=== PATIENT | male | born 1985 | race Caucasian/White ===

== ENCOUNTER 2017-01-17 17:39 | Emergency (ER) | payer OTHER ==
[~2017-01-17] VITALS: Ht 175.2 cm; Wt 93.0 kg
[~2017-01-17 17:39] MED LIST: ANAPROX DS550 MG PO; BACTRIM DS 8001 TA1 PO; CIPRO500 MG PO; ELIMITE 5%60 GM PO; KENALOG0.1% TP; NKHM; PENICILLIN VK500 MG PO; PREDNISONE20 M1 PO; PREDNISONE20 MG PO; TESSALON PERLE100 M1 PO; ZITHROMAX250 MG PO
[2017-01-17] MEDS ORDERED: CLINDAMYCIN150 MG PO (18:29)
== END 2017-01-17 18:42 | disposition home or self-care (01) ==
LOC: ED 17:39
DX: L02.511 Cutaneous abscess of right hand (principal); L02.414 Cutaneous abscess of left upper limb; F17.200 Nicotine dependence, unspecified, uncomplicated; Z88.1 Allergy status to other antibiotic agents

== ENCOUNTER 2017-02-24 20:07 | Emergency (ER) | payer OTHER ==
[~2017-02-24] VITALS: Ht 172.7 cm; Wt 97.5 kg
[~2017-02-24 20:07] MED LIST changes: +CLINDAMYCIN150 MG PO
[2017-02-24] MEDS ORDERED: PREDNISONE20 M1 PO (21:42)
[2017-02-24] MEDS ORDERED: ZITHROMAX250 MG PO (21:42)
== END 2017-02-24 21:48 | disposition home or self-care (01) ==
LOC: ED 20:07
DX: J20.9 Acute bronchitis, unspecified (principal); F17.200 Nicotine dependence, unspecified, uncomplicated; Z88.1 Allergy status to other antibiotic agents

== ENCOUNTER 2017-04-12 23:00 | Emergency (ER) | payer OTHER ==
[~2017-04-12] VITALS: Ht 172.7 cm; Wt 93.0 kg
[2017-04-12] MEDS ORDERED: BACTRIM DS 8001 TA1 PO (23:26)
[2017-04-12] MEDS ORDERED: VIBRAMYCIN100 MG PO (23:26)
== END 2017-04-12 23:52 | disposition home or self-care (01) ==
LOC: ED 23:00
DX: S70.362A Insect bite (nonvenomous), left thigh, initial encounter (principal); F17.200 Nicotine dependence, unspecified, uncomplicated; Z88.1 Allergy status to other antibiotic agents; W57.XXXA Bitten or stung by nonvenomous insect and other nonvenomous arthropods, initial encounter; Y93.89 Activity, other specified; Y92.9 Unspecified place or not applicable; Y99.9 Unspecified external cause status

== ENCOUNTER 2017-10-11 16:51 | Emergency (ER) | payer OTHER ==
[~2017-10-11] VITALS: Wt 95.3 kg
[~2017-10-11 16:51] MED LIST changes: +VIBRAMYCIN100 MG PO
[2017-10-11] MEDS ORDERED: DELTASONE20 M1 PO (17:34)
[2017-10-11] MEDS ORDERED: ZITHROMAX250 MG PO (17:34)
== END 2017-10-11 17:28 | disposition home or self-care (01) ==
LOC: ED 16:51
DX: J06.9 Acute upper respiratory infection, unspecified (principal); F17.200 Nicotine dependence, unspecified, uncomplicated; F10.10 Alcohol abuse, uncomplicated; Z88.1 Allergy status to other antibiotic agents

== ENCOUNTER 2018-02-19 08:12 | Emergency (ER) | payer SELFPAY ==
[~2018-02-19] VITALS: Ht 175.2 cm; Wt 89.4 kg
[~2018-02-19 08:12] MED LIST changes: +DELTASONE20 M1 PO
[2018-02-19] MEDS ORDERED: CEPHALEXIN500 M1 PO (08:23)
== END 2018-02-19 08:26 | disposition home or self-care (01) ==
LOC: ED 08:12
DX: S50.361A Insect bite (nonvenomous) of right elbow, initial encounter (principal); F17.200 Nicotine dependence, unspecified, uncomplicated; L08.9 Local infection of the skin and subcutaneous tissue, unspecified; Z79.899 Other long term (current) drug therapy; Z88.1 Allergy status to other antibiotic agents; W57.XXXA Bitten or stung by nonvenomous insect and other nonvenomous arthropods, initial encounter; Y93.89 Activity, other specified; Y92.89 Other specified places as the place of occurrence of the external cause; Y99.9 Unspecified external cause status

== ENCOUNTER 2018-03-09 02:09 | Emergency (ER) | payer SELFPAY ==
[~2018-03-09] VITALS: Ht 175.2 cm; Wt 93.0 kg
[~2018-03-09 02:09] MED LIST changes: +CEPHALEXIN500 M1 PO
[2018-03-09 02:40] LABS: BASO % 0.5 % (0.0-1.0); EOS % 0.6 % (1.0-4.0); HEMATOCRIT 40.1 % (42.0-52.0); HEMOGLOBIN 13.3 g/dl (14.0-18.0); LYMPH # 1.8 10*3/uL (1.3-4.4); LYMPH % 27.9 % (27.0-41.0); MEAN CELL VOLUME 86.1 fl (80.0-94.0); MEAN CORPUSCULAR HGB 28.5 pg (27.0-31.0); MEAN CORPUSCULAR HGB CONC 33.2 g/dl (33.0-37.0); MEAN PLATELET VOLUME 10.8 fl (9.6-12.3); MONO # 0.3 10*3/uL (0.1-1.0); MONO % 5.4 % (3.0-9.0); NEUT # 4.1 10*3/uL (2.3-7.9); NEUT % 65.4 % (47.0-73.0); PLATELET COUNT AUTOMATED 165 10*3/uL (130-400); RED BLOOD COUNT 4.66 10*6/uL (4.50-5.90); RED CELL DISTRI WIDTH 12.6 % (0-14.5); WHITE BLOOD COUNT 6.3 10*3/uL (4.8-10.8)
[2018-03-09 02:50] LABS: ACT PARTIAL THROMBO TIME 23.5 SECONDS (20.8-31.5)
[2018-03-09 02:56] LABS: ALBUMIN 3.8 gm/dl (3.1-4.5); ALKALINE PHOSPHATASE 86 U/L (45-117); BUN 16 mg/dl (7-24); CHLORIDE 104 mmol/L (98-107); CREATININE 0.93 mg/dL (0.70-1.30); POTASSIUM 4.1 mmol/L (3.5-5.1); SGOT/AST 30 IU/L (3-35); SGPT/ALT 39 U/L (12-78); SODIUM 142 mmol/L (136-145)
[2018-03-09 02:58] LABS: CKMB 2.5 ng/ml (0.5-3.6)
[2018-03-09 03:02] LABS: TROPONIN I < 0.015 ng/ml (<0.045)
== END 2018-03-09 03:30 | disposition home or self-care (01) ==
LOC: ED 02:09
PROVIDERS: Emergency Medicine
DX: R07.89 Other chest pain (principal); Z88.1 Allergy status to other antibiotic agents

== ENCOUNTER → 2018-04-26 | Outpatient (CLI) | payer OTHER ==
[2018-04-26 15:40] LABS: HEMATOCRIT 35.8 % (42.0-52.0); HEMOGLOBIN 11.3 g/dl (14.0-18.0); MEAN CELL VOLUME 88.4 fl (80.0-94.0); MEAN CORPUSCULAR HGB 27.9 pg (27.0-31.0); MEAN CORPUSCULAR HGB CONC 31.6 g/dl (33.0-37.0); MEAN PLATELET VOLUME 9.1 fl (9.6-12.3); PLATELET COUNT AUTOMATED 168 10*3/uL (130-400); RED BLOOD COUNT 4.05 10*6/uL (4.50-5.90); RED CELL DISTRI WIDTH 16.5 % (0-14.5)
[2018-04-26 15:53] LABS: ALBUMIN 2.9 gm/dl (3.1-4.5); ALKALINE PHOSPHATASE 71 U/L (45-117); BUN 13 mg/dl (7-24); CHLORIDE 107 mmol/L (98-107); CREATININE 0.87 mg/dL (0.70-1.30); POTASSIUM 4.1 mmol/L (3.5-5.1); SGOT/AST 19 IU/L (3-35); SGPT/ALT 20 U/L (12-78); SODIUM 140 mmol/L (136-145); TOTAL PROTEIN 8.8 gm/dL (6.4-8.2)
[2018-04-26 16:02] LABS: ATYPICAL LYMPHS 6 % (0-0); BASOPHILS 2 % (0-1); PLATELET SUFFICIENCY NORMAL (NORMAL); TOTAL CELLS COUNTED 100 #CELLS
== END | disposition home or self-care (01) ==
LOC: LAB 15:16
PROVIDERS: Registered Nurse
DX: J90 Pleural effusion, not elsewhere classified (principal); J18.1 Lobar pneumonia, unspecified organism; J86.9 Pyothorax without fistula

== ENCOUNTER 2018-10-05 13:48 | Emergency (ER) | payer OTHER ==
[~2018-10-05] VITALS: Ht 175.2 cm; Wt 93.0 kg
[2018-10-05 14:12] LABS: BILIRUBIN NEGATIVE (NEGATIVE); BLOOD NEGATIVE (NEGATIVE); CLARITY CLEAR (CLEAR); COLOR YELLOW (YELLOW); GLUCOSE NEGATIVE (NEGATIVE); KETONE NEGATIVE (NEGATIVE); LEUKO ESTERASE NEGATIVE (NEGATIVE); NITRITE NEGATIVE (NEGATIVE); SPECIFIC GRAVITY 1.025 (1.005-1.030); UROBILINOGEN 0.2 E.U./dl (0.2-1.0)
[2018-10-05 14:15] LABS: BASO % 0.3 % (0.0-1.0); EOS % 0.2 % (1.0-4.0); HEMATOCRIT 40.2 % (42.0-52.0); HEMOGLOBIN 13.4 g/dl (14.0-18.0); LYMPH # 1.7 10*3/uL (1.3-4.4); LYMPH % 19.7 % (27.0-41.0); MEAN CELL VOLUME 87.8 fl (80.0-94.0); MEAN CORPUSCULAR HGB 29.3 pg (27.0-31.0); MEAN CORPUSCULAR HGB CONC 33.3 g/dl (33.0-37.0); MEAN PLATELET VOLUME 10.3 fl (9.6-12.3); MONO # 0.6 10*3/uL (0.1-1.0); MONO % 6.3 % (3.0-9.0); NEUT # 6.4 10*3/uL (2.3-7.9); NEUT % 73.3 % (47.0-73.0); PLATELET COUNT AUTOMATED 179 10*3/uL (130-400); RED BLOOD COUNT 4.58 10*6/uL (4.50-5.90); RED CELL DISTRI WIDTH 13.4 % (0-14.5); WHITE BLOOD COUNT 8.8 10*3/uL (4.8-10.8)
[2018-10-05 14:28] LABS: WBC 0-2 wbc/hpf (0-5)
[2018-10-05 14:29] LABS: MUCOUS 1+
[2018-10-05 14:31] LABS: ALBUMIN 3.6 gm/dl (3.1-4.5); ALKALINE PHOSPHATASE 80 U/L (45-117); BUN 12 mg/dl (7-24); CHLORIDE 108 mmol/L (98-107); CREATININE 0.98 mg/dL (0.70-1.30); LIPASE 149 U/L (73-393); POTASSIUM 3.7 mmol/L (3.5-5.1); SGOT/AST 23 IU/L (3-35); SGPT/ALT 28 U/L (12-78); SODIUM 140 mmol/L (136-145); TOTAL PROTEIN 8.1 gm/dL (6.4-8.2)
[2018-10-05 14:46] LABS: ACT PARTIAL THROMBO TIME 22.5 SECONDS (20.8-31.5)
== END 2018-10-05 15:16 | disposition home or self-care (01) ==
LOC: ED 13:48
PROVIDERS: Emergency Medicine
DX: R10.32 Left lower quadrant pain (principal); K62.5 Hemorrhage of anus and rectum; E66.9 Obesity, unspecified; F17.200 Nicotine dependence, unspecified, uncomplicated; Z88.1 Allergy status to other antibiotic agents

== ENCOUNTER 2019-05-28 01:32 | Emergency (ER) | payer SELFPAY ==
[~2019-05-28] VITALS: Ht 175.2 cm; Wt 99.8 kg
[~2019-05-28 01:32] MED LIST changes: +Tobrex Ophth S2.5 ML OPH
[2019-05-28] MEDS ORDERED: CLINDAMYCIN HC300 MG PO (01:53)
== END 2019-05-28 01:58 | disposition home or self-care (01) ==
LOC: ED 01:32
DX: L03.114 Cellulitis of left upper limb (principal); L03.113 Cellulitis of right upper limb; R53.83 Other fatigue; R68.83 Chills (without fever); R53.1 Weakness; F17.200 Nicotine dependence, unspecified, uncomplicated; Z88.1 Allergy status to other antibiotic agents

== ENCOUNTER 2019-07-15 17:00 | Emergency (ER) | payer SELFPAY ==
[~2019-07-15] VITALS: Ht 175.2 cm; Wt 99.8 kg
[~2019-07-15 17:00] MED LIST changes: +CLINDAMYCIN HC300 MG PO
[2019-07-15 20:04] LABS: BASO # 0.1 10*3/uL (0.0-0.1); BASO % 0.5 % (0.0-1.0); EOS % 0.4 % (1.0-4.0); HEMATOCRIT 40.9 % (42.0-52.0); HEMOGLOBIN 13.8 g/dl (14.0-18.0); LYMPH # 2.3 10*3/uL (1.3-4.4); LYMPH % 19.9 % (27.0-41.0); MEAN CELL VOLUME 89.3 fl (80.0-94.0); MEAN CORPUSCULAR HGB 30.1 pg (27.0-31.0); MEAN CORPUSCULAR HGB CONC 33.7 g/dl (33.0-37.0); MONO # 0.7 10*3/uL (0.1-1.0); MONO % 6.2 % (3.0-9.0); NEUT # 8.3 10*3/uL (2.3-7.9); NEUT % 72.8 % (47.0-73.0); PLATELET COUNT AUTOMATED 191 10*3/uL (130-400); RED BLOOD COUNT 4.58 10*6/uL (4.50-5.90); WHITE BLOOD COUNT 11.3 10*3/uL (4.8-10.8)
[2019-07-15 20:19] LABS: BUN 18 mg/dl (7-24); CHLORIDE 105 mmol/L (98-107); CREATININE 1.01 mg/dL (0.70-1.30); POTASSIUM 3.7 mmol/L (3.5-5.1); SODIUM 135 mmol/L (136-145)
[2019-07-15] MEDS ORDERED: PROAIR HFA8.5 GM INH (21:30)
[2019-07-15] MEDS ORDERED: CLEOCIN HCL300 MG PO (21:33)
== END 2019-07-15 22:00 | disposition home or self-care (01) ==
LOC: ED 17:00
PROVIDERS: Nurse Practitioner
DX: J98.11 Atelectasis (principal); H60.93 Unspecified otitis externa, bilateral; L03.114 Cellulitis of left upper limb; L03.113 Cellulitis of right upper limb; Z98.890 Other specified postprocedural states; Z88.1 Allergy status to other antibiotic agents; Z88.8 Allergy status to other drugs, medicaments and biological substances

== ENCOUNTER 2019-07-23 12:18 | Emergency (ER) | payer MEDICAID ==
[~2019-07-23] VITALS: Ht 175.2 cm; Wt 97.5 kg
[~2019-07-23 12:18] MED LIST changes: +CLEOCIN HCL300 MG PO; +PROAIR HFA8.5 GM INH
[2019-07-23] MEDS ORDERED: MEDROL DOSEPAK4 MG PO (14:39)
== END 2019-07-23 14:53 | disposition home or self-care (01) ==
LOC: ED 12:18
DX: J40 Bronchitis, not specified as acute or chronic (principal); F17.200 Nicotine dependence, unspecified, uncomplicated; Z88.1 Allergy status to other antibiotic agents; Z88.2 Allergy status to sulfonamides

== ENCOUNTER 2019-08-11 21:15 | Emergency (ER) | payer SELFPAY ==
[~2019-08-11] VITALS: Wt 95.3 kg
[~2019-08-11 21:15] MED LIST changes: +MEDROL DOSEPAK4 MG PO
[2019-08-11] MEDS ORDERED: PREDNISONE10 MG PO (22:39)
== END 2019-08-11 22:50 | disposition home or self-care (01) ==
LOC: ED 21:15
DX: R06.2 Wheezing (principal); R05 Cough; F17.200 Nicotine dependence, unspecified, uncomplicated; Z88.1 Allergy status to other antibiotic agents; Z88.2 Allergy status to sulfonamides; Z79.2 Long term (current) use of antibiotics; Z79.899 Other long term (current) drug therapy

== ENCOUNTER 2020-01-13 21:14 | Emergency (ER) | payer MEDICAID ==
[~2020-01-13] VITALS: Ht 172.7 cm; Wt 99.8 kg
[~2020-01-13 21:14] MED LIST changes: +PREDNISONE10 MG PO
[2020-01-13] MEDS ORDERED: TESSALON PERLE100 M1 PO (22:55)
== END 2020-01-13 23:05 | disposition home or self-care (01) ==
LOC: ED 21:14
DX: J40 Bronchitis, not specified as acute or chronic (principal); J06.9 Acute upper respiratory infection, unspecified; Z88.1 Allergy status to other antibiotic agents; Z88.2 Allergy status to sulfonamides; Z88.8 Allergy status to other drugs, medicaments and biological substances

== ENCOUNTER 2020-06-18 13:04 | Emergency (ER) | payer OTHER ==
[~2020-06-18] VITALS: Wt 99.8 kg
[2020-06-18] MEDS ORDERED: DOXYCYCLINE100 M3 PO (14:51)
[2020-06-18 15:12] LABS: BASO # 0.1 10*3/uL (0.0-0.1); BASO % 0.7 % (0.0-1.0); EOS % 0.5 % (1.0-4.0); HEMATOCRIT 41.8 % (42.0-52.0); LYMPH # 1.9 10*3/uL (1.3-4.4); LYMPH % 21.6 % (27.0-41.0); MEAN CELL VOLUME 88.7 fl (80.0-94.0); MEAN CORPUSCULAR HGB 29.1 pg (27.0-31.0); MEAN CORPUSCULAR HGB CONC 32.8 g/dl (33.0-37.0); MEAN PLATELET VOLUME 10.9 fl (9.6-12.3); MONO # 0.5 10*3/uL (0.1-1.0); MONO % 6.1 % (3.0-9.0); NEUT # 6.3 10*3/uL (2.3-7.9); NEUT % 70.9 % (47.0-73.0); PLATELET COUNT AUTOMATED 226 10*3/uL (130-400); RED BLOOD COUNT 4.71 10*6/uL (4.50-5.90); RED CELL DISTRI WIDTH 12.8 % (0-14.5); WHITE BLOOD COUNT 8.9 10*3/uL (4.8-10.8)
[2020-06-18 15:44] LABS: ACT PARTIAL THROMBO TIME 27.5 SECONDS (20.0-32.1); INTERNATIONAL NORM RATIO 1.1 (2.0-3.5)
[2020-06-18 15:51] LABS: ALBUMIN 3.8 gm/dl (3.1-4.5); ALKALINE PHOSPHATASE 82 U/L (45-117); BUN 15 mg/dl (7-24); CHLORIDE 108 mmol/L (98-107); CREATININE 1.13 mg/dL (0.70-1.30); LIPASE 50 U/L (73-393); POTASSIUM 3.6 mmol/L (3.5-5.1); SGOT/AST 28 IU/L (3-35); SGPT/ALT 30 U/L (12-78); SODIUM 140 mmol/L (136-145); TOTAL PROTEIN 8.6 gm/dL (6.4-8.2)
[2020-06-18 15:52] LABS: TROPONIN I < 0.015 ng/ml (<0.045)
[2020-06-18 16:31] LABS: BILIRUBIN 1+; CLARITY CLEAR (CLEAR); COLOR YELLOW (YELLOW); GLUCOSE NEGATIVE; KETONE TRACE
[2020-06-18 16:32] LABS: BLOOD NEGATIVE (NEGATIVE); LEUKO ESTERASE TRACE (NEGATIVE); NITRITE NEGATIVE (NEGATIVE); SPECIFIC GRAVITY >= 1.030 (1.001-1.030)
[2020-06-18 16:36] LABS: RBC 0-2 rbc/hpf (0-2)
[2020-06-18 16:37] LABS: BACTERIA TRACE; EPITHELIAL CELLS 0-2; MUCOUS 1+
== END 2020-06-18 18:29 | disposition home or self-care (01) ==
LOC: ED 13:04
PROVIDERS: Physician Assistant
DX: L02.422 Furuncle of left axilla (principal); R09.1 Pleurisy

== ENCOUNTER 2020-07-19 12:10 | Emergency (ER) | payer OTHER ==
[~2020-07-19] VITALS: Ht 175.2 cm; Wt 99.8 kg
[~2020-07-19 12:10] MED LIST changes: +DOXYCYCLINE100 M3 PO
== END 2020-07-19 12:55 | disposition home or self-care (01) ==
LOC: ED 12:10
DX: R19.09 Other intra-abdominal and pelvic swelling, mass and lump (principal); Z88.8 Allergy status to other drugs, medicaments and biological substances; Z79.899 Other long term (current) drug therapy

== ENCOUNTER 2020-10-05 23:54 | Emergency (ER) | payer OTHER ==
[~2020-10-05] VITALS: Ht 172.7 cm; Wt 99.8 kg
[2020-10-06] MEDS ORDERED: EXCEDRIN MIGRA1 EAC1 PO (00:12)
[2020-10-06 00:36] LABS: BASO # 0.1 10*3/uL (0.0-0.1); BASO % 0.8 % (0.0-1.0); EOS # 0.2 10*3/uL (0.0-0.4); EOS % 1.8 % (1.0-4.0); HEMATOCRIT 42.4 % (42.0-52.0); LYMPH # 2.3 10*3/uL (1.3-4.4); LYMPH % 22.6 % (27.0-41.0); MEAN CELL VOLUME 89.8 fl (80.0-94.0); MEAN CORPUSCULAR HGB 28.4 pg (27.0-31.0); MEAN CORPUSCULAR HGB CONC 31.6 g/dl (33.0-37.0); MEAN PLATELET VOLUME 10.2 fl (9.6-12.3); MONO # 0.8 10*3/uL (0.1-1.0); MONO % 7.5 % (3.0-9.0); NEUT # 6.8 10*3/uL (2.3-7.9); NEUT % 67.1 % (47.0-73.0); PLATELET COUNT AUTOMATED 184 10*3/uL (130-400); RED BLOOD COUNT 4.72 10*6/uL (4.50-5.90); RED CELL DISTRI WIDTH 12.7 % (0-14.5); WHITE BLOOD COUNT 10.1 10*3/uL (4.8-10.8)
[2020-10-06 00:51] LABS: ALBUMIN 3.7 gm/dl (3.1-4.5); ALKALINE PHOSPHATASE 77 U/L (45-117); BUN 12 mg/dl (7-24); CHLORIDE 107 mmol/L (98-107); CREATININE 1.14 mg/dL (0.70-1.30); POTASSIUM 3.5 mmol/L (3.5-5.1); SGOT/AST 37 IU/L (3-35); SGPT/ALT 39 U/L (12-78); SODIUM 139 mmol/L (136-145); TOTAL PROTEIN 8.3 gm/dL (6.4-8.2)
[2020-10-06] MEDS ORDERED: MEDROL DOSEPAK4 MG PO (01:18)
[2020-10-06] MEDS ORDERED: ZITHROMAX250 MG PO (01:18)
== END 2020-10-06 01:45 | disposition home or self-care (01) ==
LOC: ED 23:54
PROVIDERS: Nurse Practitioner Family
DX: J90 Pleural effusion, not elsewhere classified (principal); F17.200 Nicotine dependence, unspecified, uncomplicated; Z86.14 Personal history of Methicillin resistant Staphylococcus aureus infection; Z88.1 Allergy status to other antibiotic agents; Z88.2 Allergy status to sulfonamides; Z79.82 Long term (current) use of aspirin

== ENCOUNTER 2020-12-15 14:29 | Emergency (ER) | payer OTHER ==
[~2020-12-15] VITALS: Ht 172.7 cm; Wt 99.8 kg
[~2020-12-15 14:29] MED LIST changes: +EXCEDRIN MIGRA1 EAC1 PO
[2020-12-15] MEDS ORDERED: HYDROCODON-ACE1 EACH PO (16:42)
== END 2020-12-15 16:44 | disposition home or self-care (01) ==
LOC: ED 14:29
DX: S82.52XA Displaced fracture of medial malleolus of left tibia, initial encounter for closed fracture (principal); F17.200 Nicotine dependence, unspecified, uncomplicated; Z86.14 Personal history of Methicillin resistant Staphylococcus aureus infection; Z88.2 Allergy status to sulfonamides; Z88.8 Allergy status to other drugs, medicaments and biological substances; Z79.2 Long term (current) use of antibiotics; Z79.899 Other long term (current) drug therapy; Z88.1 Allergy status to other antibiotic agents; Z79.82 Long term (current) use of aspirin; Z98.890 Other specified postprocedural states; X50.1XXA Overexertion from prolonged static or awkward postures, initial encounter; Y93.89 Activity, other specified; Y92.812 Truck as the place of occurrence of the external cause; Y99.0 Civilian activity done for income or pay

== ENCOUNTER 2020-12-25 12:36 | Emergency (ER) | payer OTHER ==
[~2020-12-25] VITALS: Ht 175.2 cm; Wt 99.8 kg
[~2020-12-25 12:36] MED LIST changes: +HYDROCODON-ACE1 EACH PO
[2020-12-25] MEDS ORDERED: ZITHROMAX250 MG PO (13:59)
[2020-12-25] MEDS ORDERED: PREDNISONE20 M1 PO (13:59)
== END 2020-12-25 14:11 | disposition home or self-care (01) ==
LOC: ED 12:36
DX: J40 Bronchitis, not specified as acute or chronic (principal); F17.200 Nicotine dependence, unspecified, uncomplicated; Z88.8 Allergy status to other drugs, medicaments and biological substances; Z88.6 Allergy status to analgesic agent; Z79.82 Long term (current) use of aspirin; Z79.899 Other long term (current) drug therapy; Z98.890 Other specified postprocedural states

== ENCOUNTER 2021-01-20 17:35 | Emergency (ER) | payer OTHER ==
[~2021-01-20] VITALS: Wt 110.2 kg
[2021-01-20] MEDS ORDERED: PROVENTIL HFA6.7 GM INH (19:47)
[2021-01-20] MEDS ORDERED: PREDNISONE20 M1 PO (19:47)
== END 2021-01-20 20:15 | disposition home or self-care (01) ==
LOC: ED 17:35
DX: J40 Bronchitis, not specified as acute or chronic (principal); Z20.822 Contact with and (suspected) exposure to COVID-19; Z88.8 Allergy status to other drugs, medicaments and biological substances; Z88.2 Allergy status to sulfonamides; Z79.899 Other long term (current) drug therapy; Z88.6 Allergy status to analgesic agent; Z98.890 Other specified postprocedural states

== ENCOUNTER 2021-03-24 13:04 | Emergency (ER) | payer OTHER ==
[~2021-03-24] VITALS: Ht 175.2 cm; Wt 110.7 kg
[~2021-03-24 13:04] MED LIST changes: +PROVENTIL HFA6.7 GM INH
[2021-03-24] MEDS ORDERED: ZYRTEC10 M2 PO (13:43)
[2021-03-24] MEDS ORDERED: CEFDINIR300 MG PO (13:43)
== END 2021-03-24 13:54 | disposition home or self-care (01) ==
LOC: ED 13:04
DX: H66.92 Otitis media, unspecified, left ear (principal); Z88.8 Allergy status to other drugs, medicaments and biological substances; Z88.2 Allergy status to sulfonamides; Z88.6 Allergy status to analgesic agent; Z79.899 Other long term (current) drug therapy

== ENCOUNTER 2021-04-20 12:00 | Emergency (ER) | payer OTHER ==
[~2021-04-20] VITALS: Ht 175.2 cm; Wt 110.7 kg
[~2021-04-20 12:00] MED LIST changes: +CEFDINIR300 MG PO; +ZYRTEC10 M2 PO
[2021-04-20] MEDS ORDERED: DOXYCYCLINE100 M3 PO ×2 (13:18→13:19)
== END 2021-04-20 13:51 | disposition home or self-care (01) ==
LOC: ED 12:00
DX: L73.9 Follicular disorder, unspecified (principal); F17.200 Nicotine dependence, unspecified, uncomplicated; Z88.1 Allergy status to other antibiotic agents; Z88.6 Allergy status to analgesic agent; Z88.2 Allergy status to sulfonamides; Z79.899 Other long term (current) drug therapy; Z79.2 Long term (current) use of antibiotics; Z79.82 Long term (current) use of aspirin; Z98.890 Other specified postprocedural states

== ENCOUNTER 2021-06-05 11:05 | Emergency (ER) | payer OTHER ==
[2021-06-05] MEDS ORDERED: DOXYCYCLINE100 M3 PO (11:27)
== END 2021-06-05 11:40 | disposition home or self-care (01) ==
LOC: ED 11:05
DX: L02.411 Cutaneous abscess of right axilla (principal); Z98.890 Other specified postprocedural states; Z79.899 Other long term (current) drug therapy; Z79.82 Long term (current) use of aspirin; Z88.1 Allergy status to other antibiotic agents; Z88.5 Allergy status to narcotic agent; Z88.8 Allergy status to other drugs, medicaments and biological substances

== ENCOUNTER 2021-12-10 11:46 | Emergency (ER) | payer OTHER ==
[~2021-12-10] VITALS: Wt 108.9 kg
[2021-12-10 12:35] LABS: BASO # 0.1 10*3/uL (0.0-0.1); BASO % 0.9 % (0.0-1.0); EOS # 0.3 10*3/uL (0.0-0.4); EOS % 3.2 % (1.0-4.0); HEMATOCRIT 42.4 % (42.0-52.0); LYMPH # 1.6 10*3/uL (1.3-4.4); LYMPH % 20.4 % (27.0-41.0); MEAN CELL VOLUME 90.2 fl (80.0-94.0); MEAN CORPUSCULAR HGB 29.8 pg (27.0-31.0); MONO # 0.6 10*3/uL (0.1-1.0); MONO % 7.2 % (3.0-9.0); NEUT # 5.5 10*3/uL (2.3-7.9); NEUT % 68.2 % (47.0-73.0); PLATELET COUNT AUTOMATED 179 10*3/uL (130-400); RED CELL DISTRI WIDTH 12.4 % (0-14.5); WHITE BLOOD COUNT 8.1 10*3/uL (4.8-10.8)
[2021-12-10 12:54] LABS: ALBUMIN 3.5 gm/dl (3.1-4.5); ALKALINE PHOSPHATASE 68 U/L (45-117); BUN 13 mg/dl (7-24); CHLORIDE 107 mmol/L (98-107); CREATININE 0.95 mg/dL (0.70-1.30); LIPASE 59 U/L (73-393); POTASSIUM 4.3 mmol/L (3.5-5.1); SGOT/AST 27 IU/L (3-35); SGPT/ALT 26 U/L (12-78); SODIUM 138 mmol/L (136-145); TOTAL PROTEIN 8.1 gm/dL (6.4-8.2)
== END 2021-12-10 14:07 | disposition home or self-care (01) ==
LOC: ED 11:46
PROVIDERS: Physician Assistant
DX: R42 Dizziness and giddiness (principal); F17.200 Nicotine dependence, unspecified, uncomplicated; Z88.1 Allergy status to other antibiotic agents; Z88.8 Allergy status to other drugs, medicaments and biological substances; Z79.899 Other long term (current) drug therapy; Z98.890 Other specified postprocedural states

== ENCOUNTER 2022-01-28 12:41 | Emergency (ER) | payer OTHER ==
[~2022-01-28] VITALS: Ht 175.2 cm; Wt 108.9 kg
[2022-01-28] MEDS ORDERED: ZITHROMAX250 MG PO ×2 (14:10)
[2022-01-28] MEDS ORDERED: PROAIR HFA8.5 GM INH ×2 (14:10)
[2022-01-28] MEDS ORDERED: PREDNISONE50 MG PO ×2 (14:10)
== END 2022-01-28 14:36 | disposition home or self-care (01) ==
LOC: ED 12:41
DX: J40 Bronchitis, not specified as acute or chronic (principal); J18.9 Pneumonia, unspecified organism; F17.200 Nicotine dependence, unspecified, uncomplicated; Z88.1 Allergy status to other antibiotic agents; Z88.8 Allergy status to other drugs, medicaments and biological substances; Z79.899 Other long term (current) drug therapy; Z98.890 Other specified postprocedural states

== ENCOUNTER 2022-02-03 21:36 | Emergency (ER) | payer OTHER ==
[~2022-02-03] VITALS: Ht 175.2 cm; Wt 111.1 kg
[~2022-02-03 21:36] MED LIST changes: +PREDNISONE50 MG PO
[2022-02-03 22:02] LABS: BASO # 0.1 10*3/uL (0.0-0.1); BASO % 0.4 % (0.0-1.0); EOS # 0.4 10*3/uL (0.0-0.4); EOS % 2.7 % (1.0-4.0); HEMATOCRIT 39.2 % (42.0-52.0); LYMPH # 3.4 10*3/uL (1.3-4.4); LYMPH % 24.6 % (27.0-41.0); MEAN CELL VOLUME 90.3 fl (80.0-94.0); MEAN CORPUSCULAR HGB 29.7 pg (27.0-31.0); MEAN CORPUSCULAR HGB CONC 32.9 g/dl (33.0-37.0); MEAN PLATELET VOLUME 10.2 fl (9.6-12.3); MONO # 0.9 10*3/uL (0.1-1.0); MONO % 6.2 % (3.0-9.0); NEUT # 9.2 10*3/uL (2.3-7.9); NEUT % 65.9 % (47.0-73.0); PLATELET COUNT AUTOMATED 207 10*3/uL (130-400); RED BLOOD COUNT 4.34 10*6/uL (4.50-5.90); RED CELL DISTRI WIDTH 12.5 % (0-14.5); WHITE BLOOD COUNT 13.9 10*3/uL (4.8-10.8)
[2022-02-03 22:15] LABS: ALKALINE PHOSPHATASE 53 U/L (45-117); BUN 16 mg/dl (7-24); CHLORIDE 108 mmol/L (98-107); CREATININE 0.96 mg/dL (0.70-1.30); POTASSIUM 3.2 mmol/L (3.5-5.1); SGOT/AST 22 IU/L (3-35); SGPT/ALT 27 U/L (12-78); SODIUM 139 mmol/L (136-145); TOTAL PROTEIN 7.3 gm/dL (6.4-8.2)
== END 2022-02-03 23:46 | disposition left against medical advice (07) ==
LOC: ED 21:36
PROVIDERS: Internal Medicine
DX: R07.89 Other chest pain (principal); T43.615A Adverse effect of caffeine, initial encounter; E87.6 Hypokalemia; Z98.890 Other specified postprocedural states; Z79.899 Other long term (current) drug therapy; Z88.1 Allergy status to other antibiotic agents; Z88.5 Allergy status to narcotic agent; Y92.89 Other specified places as the place of occurrence of the external cause

== ENCOUNTER 2022-04-10 15:29 | Emergency (ER) | payer OTHER ==
[~2022-04-10] VITALS: Wt 108.9 kg
[2022-04-10] MEDS ORDERED: FLONASE ALLERG9.9 ML NAS (16:52)
[2022-04-10] MEDS ORDERED: ZITHROMAX250 MG PO (16:52)
[2022-04-10] MEDS ORDERED: MECLIZINE HCL25 M2 PO (16:52)
== END 2022-04-10 17:11 | disposition home or self-care (01) ==
LOC: ED 15:29
DX: H92.12 Otorrhea, left ear (principal); J32.8 Other chronic sinusitis; Z88.1 Allergy status to other antibiotic agents; Z79.899 Other long term (current) drug therapy; Z98.890 Other specified postprocedural states

== ENCOUNTER 2022-05-13 14:34 | Emergency (ER) | payer OTHER ==
[~2022-05-13 14:34] MED LIST changes: +FLONASE ALLERG9.9 ML NAS; +MECLIZINE HCL25 M2 PO
== END 2022-05-13 15:02 | disposition home or self-care (01) ==
LOC: ED 14:34
DX: H10.9 Unspecified conjunctivitis (principal); Z88.1 Allergy status to other antibiotic agents; Z88.8 Allergy status to other drugs, medicaments and biological substances; F17.200 Nicotine dependence, unspecified, uncomplicated

== ENCOUNTER 2022-05-26 13:16 | Emergency (ER) | payer OTHER ==
[~2022-05-26] VITALS: Wt 108.9 kg
== END 2022-05-26 14:15 | disposition home or self-care (01) ==
LOC: ED 13:16
DX: R21 Rash and other nonspecific skin eruption (principal); Z98.890 Other specified postprocedural states; Z88.1 Allergy status to other antibiotic agents; Z88.5 Allergy status to narcotic agent

== ENCOUNTER 2022-07-13 10:00 | Emergency (ER) | payer OTHER ==
[~2022-07-13] VITALS: Ht 175.2 cm; Wt 108.9 kg
== END 2022-07-13 11:56 | disposition home or self-care (01) ==
LOC: ED 10:00
DX: S05.02XA Injury of conjunctiva and corneal abrasion without foreign body, left eye, initial encounter (principal); J45.901 Unspecified asthma with (acute) exacerbation; R21 Rash and other nonspecific skin eruption; Z88.1 Allergy status to other antibiotic agents; Z88.6 Allergy status to analgesic agent; Z88.2 Allergy status to sulfonamides; Z98.890 Other specified postprocedural states; X58.XXXA Exposure to other specified factors, initial encounter; Y93.89 Activity, other specified; Y92.89 Other specified places as the place of occurrence of the external cause; Y99.8 Other external cause status

== ENCOUNTER → 2022-08-19 | Outpatient (CLI) | payer OTHER ==
[2022-08-19 09:55] LABS: BILIRUBIN Negative (Negative); BLOOD Negative (Negative); CLARITY Clear (Clear); COLOR Yellow (Yellow); GLUCOSE Negative (Negative); KETONE Trace (Negative); LEUKO ESTERASE Negative (Negative); NITRITE Negative (Negative); SPECIFIC GRAVITY 1.025 (1.001-1.030)
[2022-08-19 09:56] LABS: BASO # 0.1 10*3/uL (0.0-0.1); BASO % 1.1 % (0.0-1.0); EOS # 0.3 10*3/uL (0.0-0.4); EOS % 3.2 % (1.0-4.0); HEMATOCRIT 42.8 % (42.0-52.0); LYMPH # 1.6 10*3/uL (1.3-4.4); LYMPH % 19.2 % (27.0-41.0); MEAN CORPUSCULAR HGB 30.8 pg (27.0-31.0); MEAN CORPUSCULAR HGB CONC 33.4 g/dl (33.0-37.0); MEAN PLATELET VOLUME 10.5 fl (9.6-12.3); MONO # 0.6 10*3/uL (0.1-1.0); MONO % 6.8 % (3.0-9.0); NEUT # 5.9 10*3/uL (2.3-7.9); NEUT % 69.5 % (47.0-73.0); PLATELET COUNT AUTOMATED 203 10*3/uL (130-400); RED BLOOD COUNT 4.65 10*6/uL (4.50-5.90); RED CELL DISTRI WIDTH 13.1 % (0-14.5); RETICULOCYTE % 1.37 % (0.50-2.50); WHITE BLOOD COUNT 8.5 10*3/uL (4.8-10.8)
[2022-08-19 10:15] LABS: ALKALINE PHOSPHATASE 74 U/L (45-117); BUN 18 mg/dl (7-24); CHLORIDE 110 mmol/L (98-107); CHOLESTEROL 187 mg/dL (<200); CREATININE 1.03 mg/dL (0.70-1.30); GAMMA GLUTAMYL TRANSPEPTIDASE 39 U/L (15-85); IRON 35 ug/dL (65-175); LDL CHOLESTEROL 94 mg/dL (9-159); LIPASE 115 U/L (73-393); POTASSIUM 4.1 mmol/L (3.5-5.1); SGOT/AST 26 IU/L (3-35); SGPT/ALT 35 U/L (12-78); SODIUM 143 mmol/L (136-145); TOTAL PROTEIN 8.4 gm/dL (6.4-8.2); TRIGLYCERIDES 328 mg/dl (<150)
[2022-08-19 10:20] LABS: RBC 0-2 rbc/hpf (0-2); WBC 0-2 wbc/hpf (0-5)
[2022-08-19 12:10] LABS: FERRITIN 99.2 ng/mL (22.0-322.0); VITAMIN D, 25-HYDROXY 8.7 ng/mL (30-100)
[2022-08-20 04:06] LABS: H PYLORI IGG AB 0.12 (0.00-0.79); RHEUMATOID FACTOR <10.0 IU/mL (<14.0)
[2022-08-22 13:06] LABS: H.PYLORI AB IGM <9.0 units (0.0-8.9); H.PYLORI IgA <9.0 units (0.0-8.9)
[2022-08-22 14:07] LABS: ANTI-DSDNA ANTIBODIES 1 IU/mL (0-9)
== END | disposition home or self-care (01) ==
LOC: LAB 09:16
PROVIDERS: ATTEND Family Medicine
DX: E78.5 Hyperlipidemia, unspecified (principal); E55.9 Vitamin D deficiency, unspecified; R79.89 Other specified abnormal findings of blood chemistry; R53.83 Other fatigue; R74.8 Abnormal levels of other serum enzymes

== ENCOUNTER 2022-08-26 14:56 | Emergency (ER) | payer OTHER ==
[~2022-08-26] VITALS: Ht 175.2 cm; Wt 114.8 kg
[2022-08-26] MEDS ORDERED: OMEPRAZOLE20 M3 PO (17:23)
[2022-08-26 18:19] LABS: BASO # 0.1 10*3/uL (0.0-0.1); BASO % 0.6 % (0.0-1.0); EOS # 0.3 10*3/uL (0.0-0.4); EOS % 3.4 % (1.0-4.0); HEMATOCRIT 39.6 % (42.0-52.0); LYMPH # 1.9 10*3/uL (1.3-4.4); LYMPH % 20.8 % (27.0-41.0); MEAN CORPUSCULAR HGB 30.3 pg (27.0-31.0); MEAN CORPUSCULAR HGB CONC 32.6 g/dl (33.0-37.0); MEAN PLATELET VOLUME 10.9 fl (9.6-12.3); MONO # 0.7 10*3/uL (0.1-1.0); MONO % 7.3 % (3.0-9.0); NEUT # 6.3 10*3/uL (2.3-7.9); NEUT % 67.7 % (47.0-73.0); PLATELET COUNT AUTOMATED 190 10*3/uL (130-400); RED BLOOD COUNT 4.26 10*6/uL (4.50-5.90); RED CELL DISTRI WIDTH 13.1 % (0-14.5); WHITE BLOOD COUNT 9.2 10*3/uL (4.8-10.8)
[2022-08-26 18:35] LABS: ALKALINE PHOSPHATASE 75 U/L (45-117); BUN 15 mg/dl (7-24); CHLORIDE 109 mmol/L (98-107); CREATININE 0.92 mg/dL (0.70-1.30); POTASSIUM 3.8 mmol/L (3.5-5.1); SGOT/AST 28 IU/L (3-35); SGPT/ALT 30 U/L (12-78); SODIUM 142 mmol/L (136-145); TOTAL PROTEIN 7.7 gm/dL (6.4-8.2)
== END 2022-08-26 19:30 | disposition left against medical advice (07) ==
LOC: ED 14:56
PROVIDERS: Nurse Practitioner Family
DX: B34.9 Viral infection, unspecified (principal); Z20.822 Contact with and (suspected) exposure to COVID-19; Z88.1 Allergy status to other antibiotic agents; Z88.8 Allergy status to other drugs, medicaments and biological substances; Z79.899 Other long term (current) drug therapy; Z98.890 Other specified postprocedural states; F17.200 Nicotine dependence, unspecified, uncomplicated

== ENCOUNTER → 2022-10-07 | Outpatient (CLI) | payer OTHER ==
[~2022-10-07] MED LIST changes: +OMEPRAZOLE20 M3 PO
== END | disposition home or self-care (01) ==
LOC: US 07:30
PROVIDERS: ATTEND Family Medicine
DX: K76.0 Fatty (change of) liver, not elsewhere classified (principal); N32.89 Other specified disorders of bladder

== ENCOUNTER → 2022-10-26 | Outpatient (CLI) | payer OTHER | END | disposition home or self-care (01) | LOC: NM 07:00 | PROVIDERS: ATTEND Family Medicine | DX: R10.84 Generalized abdominal pain (principal) ==

== ENCOUNTER 2022-11-19 15:27 | Emergency (ER) | payer OTHER ==
[~2022-11-19] VITALS: Wt 113.4 kg
[2022-11-19] MEDS ORDERED: NYSTATIN CREAM15 GM T (15:58)
== END 2022-11-19 16:04 | disposition home or self-care (01) ==
LOC: ED 15:27
DX: B37.2 Candidiasis of skin and nail (principal); Z88.1 Allergy status to other antibiotic agents; Z88.5 Allergy status to narcotic agent; Z88.2 Allergy status to sulfonamides; Z98.890 Other specified postprocedural states; F10.90 Alcohol use, unspecified, uncomplicated

== ENCOUNTER 2023-01-10 22:00 | Emergency (ER) | payer OTHER ==
[~2023-01-10] VITALS: Ht 175.2 cm; Wt 115.7 kg
[~2023-01-10 22:00] MED LIST changes: +NYSTATIN CREAM15 GM T
[2023-01-11] MEDS ORDERED: BENZONATATE100 M1 PO (02:42)
[2023-01-11] MEDS ORDERED: ZITHROMAX250 MG PO (02:42)
== END 2023-01-11 03:09 | disposition home or self-care (01) ==
LOC: ED 22:00
DX: J40 Bronchitis, not specified as acute or chronic (principal)

== ENCOUNTER 2023-02-06 12:02 | Emergency (ER) | payer OTHER ==
[~2023-02-06] VITALS: Ht 175.2 cm; Wt 117.9 kg
[~2023-02-06 12:02] MED LIST changes: +BENZONATATE100 M1 PO
[2023-02-06 12:56] LABS: BASO # 0.1 10*3/uL (0.0-0.1); BASO % 0.6 % (0.0-1.0); EOS # 0.2 10*3/uL (0.0-0.4); EOS % 2.2 % (1.0-4.0); HEMATOCRIT 43.6 % (42.0-52.0); LYMPH # 1.2 10*3/uL (1.3-4.4); LYMPH % 14.9 % (27.0-41.0); MEAN CELL VOLUME 91.6 fl (80.0-94.0); MEAN CORPUSCULAR HGB 29.8 pg (27.0-31.0); MEAN CORPUSCULAR HGB CONC 32.6 g/dl (33.0-37.0); MEAN PLATELET VOLUME 10.3 fl (9.6-12.3); MONO # 0.5 10*3/uL (0.1-1.0); MONO % 6.9 % (3.0-9.0); NEUT # 5.9 10*3/uL (2.3-7.9); NEUT % 75.1 % (47.0-73.0); PLATELET COUNT AUTOMATED 178 10*3/uL (130-400); RED BLOOD COUNT 4.76 10*6/uL (4.50-5.90); RED CELL DISTRI WIDTH 12.6 % (0-14.5); WHITE BLOOD COUNT 7.8 10*3/uL (4.8-10.8)
[2023-02-06 13:36] LABS: ALKALINE PHOSPHATASE 71 U/L (46-116); BUN 10 mg/dl (9-23); CHLORIDE 107 mmol/L (98-107); POTASSIUM 3.9 mmol/L (3.4-5.1); SGPT/ALT 30 U/L (10-49); TOTAL PROTEIN 7.7 gm/dL (6.0-8.0)
[2023-02-06] MEDS ORDERED: ZITHROMAX250 MG PO (14:16)
[2023-02-06] MEDS ORDERED: PREDNISONE50 MG PO (14:16)
== END 2023-02-06 14:37 | disposition home or self-care (01) ==
LOC: ED 12:02
PROVIDERS: Nurse Practitioner Family
DX: J40 Bronchitis, not specified as acute or chronic (principal); Z88.1 Allergy status to other antibiotic agents; Z88.5 Allergy status to narcotic agent; Z88.2 Allergy status to sulfonamides; Z88.8 Allergy status to other drugs, medicaments and biological substances; Z98.890 Other specified postprocedural states; Z20.822 Contact with and (suspected) exposure to COVID-19

== ENCOUNTER 2023-02-22 22:19 | Emergency (ER) | payer OTHER ==
[~2023-02-22] VITALS: Ht 175.2 cm; Wt 117.9 kg
[2023-02-22 23:04] LABS: BASO # 0.1 10*3/uL (0.0-0.1); BASO % 0.7 % (0.0-1.0); EOS # 0.3 10*3/uL (0.0-0.4); EOS % 2.1 % (1.0-4.0); HEMATOCRIT 40.2 % (42.0-52.0); LYMPH # 2.4 10*3/uL (1.3-4.4); LYMPH % 19.7 % (27.0-41.0); MEAN CORPUSCULAR HGB 29.6 pg (27.0-31.0); MEAN CORPUSCULAR HGB CONC 32.6 g/dl (33.0-37.0); MEAN PLATELET VOLUME 9.8 fl (9.6-12.3); MONO # 1.1 10*3/uL (0.1-1.0); MONO % 8.6 % (3.0-9.0); NEUT # 8.3 10*3/uL (2.3-7.9); NEUT % 68.5 % (47.0-73.0); PLATELET COUNT AUTOMATED 234 10*3/uL (130-400); RED BLOOD COUNT 4.42 10*6/uL (4.50-5.90); RED CELL DISTRI WIDTH 12.6 % (0-14.5); WHITE BLOOD COUNT 12.2 10*3/uL (4.8-10.8)
[2023-02-22 23:05] LABS: ALKALINE PHOSPHATASE 70 U/L (46-116); BUN 11 mg/dl (9-23); CHLORIDE 104 mmol/L (98-107); POTASSIUM 5.3 mmol/L (3.4-5.1); SGPT/ALT 24 U/L (10-49); TOTAL PROTEIN 7.8 gm/dL (6.0-8.0)
[2023-02-22] MEDS ORDERED: CEPHALEXIN500 M1 PO (23:58)
== END 2023-02-23 00:09 | disposition home or self-care (01) ==
LOC: ED 22:19
PROVIDERS: Internal Medicine
DX: G89.18 Other acute postprocedural pain (principal); D72.829 Elevated white blood cell count, unspecified; Z88.1 Allergy status to other antibiotic agents; Z88.8 Allergy status to other drugs, medicaments and biological substances; Z98.890 Other specified postprocedural states

== ENCOUNTER 2023-07-28 22:48 | Emergency (ER) | payer OTHER ==
[~2023-07-28] VITALS: Ht 175.2 cm; Wt 99.8 kg
[2023-07-28 23:38] LABS: BASO # 0.1 10*3/uL (0.0-0.1); BASO % 0.8 % (0.0-1.0); EOS # 0.2 10*3/uL (0.0-0.4); EOS % 1.6 % (1.0-4.0); HEMATOCRIT 42.8 % (42.0-52.0); LYMPH # 2.8 10*3/uL (1.3-4.4); LYMPH % 23.4 % (27.0-41.0); MEAN CELL VOLUME 89.4 fl (80.0-94.0); MEAN CORPUSCULAR HGB 29.6 pg (27.0-31.0); MEAN CORPUSCULAR HGB CONC 33.2 g/dl (33.0-37.0); MEAN PLATELET VOLUME 10.1 fl (9.6-12.3); MONO # 0.8 10*3/uL (0.1-1.0); MONO % 6.7 % (3.0-9.0); NEUT % 67.2 % (47.0-73.0); PLATELET COUNT AUTOMATED 202 10*3/uL (130-400); RED BLOOD COUNT 4.79 10*6/uL (4.50-5.90); RED CELL DISTRI WIDTH 12.7 % (0-14.5)
[2023-07-28 23:49] LABS: ACT PARTIAL THROMBO TIME 27.2 SECONDS (20.0-32.1); INTERNATIONAL NORM RATIO 1.1 (2.0-3.5)
[2023-07-29] LABS: ALKALINE PHOSPHATASE 75 U/L (46-116); BUN 11 mg/dl (9-23); CHLORIDE 105 mmol/L (98-107); LIPASE 29 U/L (12-53); POTASSIUM 3.5 mmol/L (3.4-5.1); SGPT/ALT 26 U/L (10-49); TOTAL PROTEIN 7.8 gm/dL (6.0-8.0)
== END 2023-07-29 01:10 | disposition home or self-care (01) ==
LOC: ED 22:48
PROVIDERS: Internal Medicine
DX: B34.9 Viral infection, unspecified (principal); Z88.1 Allergy status to other antibiotic agents; Z88.5 Allergy status to narcotic agent; Z88.2 Allergy status to sulfonamides; Z88.8 Allergy status to other drugs, medicaments and biological substances; Z98.890 Other specified postprocedural states; Z20.822 Contact with and (suspected) exposure to COVID-19

== ENCOUNTER 2023-10-05 21:00 | Emergency (ER) | payer OTHER ==
[~2023-10-05] VITALS: Ht 175.2 cm; Wt 99.8 kg
[2023-10-05] MEDS ORDERED: PREDNISONE20 M1 PO (22:05)
[2023-10-05] MEDS ORDERED: ZITHROMAX250 MG PO (22:05)
== END 2023-10-05 22:36 | disposition home or self-care (01) ==
LOC: ED 21:00
DX: B34.9 Viral infection, unspecified (principal); Z88.1 Allergy status to other antibiotic agents; Z88.2 Allergy status to sulfonamides; Z88.5 Allergy status to narcotic agent; Z88.8 Allergy status to other drugs, medicaments and biological substances; Z98.890 Other specified postprocedural states; Z20.822 Contact with and (suspected) exposure to COVID-19

== ENCOUNTER 2023-11-14 12:15 | Emergency (ER) | payer OTHER ==
[~2023-11-14] VITALS: Ht 175.2 cm; Wt 104.3 kg
== END 2023-11-14 15:10 | disposition home or self-care (01) ==
LOC: ED 12:15
DX: U07.1 COVID-19 (principal); Z88.1 Allergy status to other antibiotic agents; Z88.2 Allergy status to sulfonamides; Z88.8 Allergy status to other drugs, medicaments and biological substances; Z98.890 Other specified postprocedural states

== ENCOUNTER → 2024-04-12 | Outpatient (CLI) | payer OTHER ==
[2024-04-12 10:55] LABS: BASO # 0.1 10*3/uL (0.0-0.1); BASO % 0.9 % (0.0-1.0); EOS # 0.3 10*3/uL (0.0-0.4); EOS % 3.1 % (1.0-4.0); HEMATOCRIT 40.6 % (42.0-52.0); LYMPH # 1.6 10*3/uL (1.3-4.4); MEAN CELL VOLUME 90.6 fl (80.0-94.0); MEAN CORPUSCULAR HGB 29.9 pg (27.0-31.0); MEAN PLATELET VOLUME 10.1 fl (9.6-12.3); MONO # 0.5 10*3/uL (0.1-1.0); MONO % 6.2 % (3.0-9.0); NEUT % 70.6 % (47.0-73.0); PLATELET COUNT AUTOMATED 179 10*3/uL (130-400); RED BLOOD COUNT 4.48 10*6/uL (4.50-5.90); RED CELL DISTRI WIDTH 12.6 % (0-14.5); RETICULOCYTE % 1.49 % (0.50-2.50); WHITE BLOOD COUNT 8.5 10*3/uL (4.8-10.8)
[2024-04-12 11:30] LABS: BILIRUBIN Negative (Negative); BLOOD Negative (Negative); CLARITY Clear (Clear); COLOR Yellow (Yellow); GLUCOSE Negative (Negative); KETONE Negative (Negative); LEUKO ESTERASE Negative (Negative); NITRITE Negative (Negative); SPECIFIC GRAVITY 1.025 (1.001-1.030)
[2024-04-12 11:37] LABS: ALKALINE PHOSPHATASE 73 U/L (46-116); BUN 17 mg/dl (9-23); CHLORIDE 107 mmol/L (98-107); CHOLESTEROL 178 mg/dL (<200); GAMMA GLUTAMYL TRANSPEPTIDASE 45 U/L (0-73); LDL CHOLESTEROL 99 mg/dL (9-159); POTASSIUM 4.2 mmol/L (3.4-5.1); SGPT/ALT 26 U/L (5-49); T3 UPTAKE 25.4 % (22.4-36.7); THYROXINE (T4) TOTAL 5.9 ug/dl (4.5-10.9); TOTAL PROTEIN 7.6 gm/dL (6.0-8.0); TRIGLYCERIDES 255 mg/dl (<150); URIC ACID 7.3 mg/dL (3.7-9.2)
[2024-04-12 11:49] LABS: VITAMIN D, 25-HYDROXY 14.4 ng/mL (30-100)
[2024-04-12 13:09] LABS: MUCOUS TRACE; RBC 0-2 rbc/hpf (0-2)
[2024-04-13 05:08] LABS: HBSAG Negative (Negative); HEP B CORE AB, IGM Negative (Negative); HEPATITIS C ANTIBODY Non Reactive (Non Reactive)
[2024-04-15 13:06] LABS: ANTI-DSDNA ANTIBODIES 1 IU/mL (0-9)
== END | disposition home or self-care (01) ==
LOC: LAB 10:34
PROVIDERS: ATTEND Family Medicine
DX: R79.89 Other specified abnormal findings of blood chemistry (principal); E78.5 Hyperlipidemia, unspecified; E55.9 Vitamin D deficiency, unspecified

== ENCOUNTER 2024-08-13 13:03 | Emergency (ER) | payer SELFPAY ==
[~2024-08-13] VITALS: Ht 175.2 cm; Wt 113.4 kg
[2024-08-13] MEDS ORDERED: VITAMIN D3 MA125 MC1 PO (13:20)
[2024-08-13] MEDS ORDERED: ACETAMINOPHEN 325 MG TAB PO ONE (13:50)
== END 2024-08-13 16:48 | disposition home or self-care (01) ==
LOC: ED 13:03
DX: B34.9 Viral infection, unspecified (principal); Z20.822 Contact with and (suspected) exposure to COVID-19; J06.9 Acute upper respiratory infection, unspecified; F17.290 Nicotine dependence, other tobacco product, uncomplicated; Z88.1 Allergy status to other antibiotic agents; Z88.5 Allergy status to narcotic agent; Z88.2 Allergy status to sulfonamides; Z88.8 Allergy status to other drugs, medicaments and biological substances; Z98.890 Other specified postprocedural states

== ENCOUNTER 2025-03-05 16:34 | Emergency (ER) | payer SELFPAY ==
[~2025-03-05] VITALS: Wt 113.4 kg
[~2025-03-05 16:34] MED LIST changes: +VITAMIN D3 MA125 MC1 PO
[2025-03-05] MEDS ORDERED: PREDNISONE10 MG PO (17:13)
[2025-03-05] MEDS ORDERED: VIBRAMYCIN100 MG PO (17:13)
[2025-03-05] MEDS ORDERED: Ciprofloxacin Hydrochloride 0.3% OPHTHLAMIC BOTTLE OPH ONE (17:15)
== END 2025-03-05 17:24 | disposition home or self-care (01) ==
LOC: ED 16:34
DX: H10.32 Unspecified acute conjunctivitis, left eye (principal); R21 Rash and other nonspecific skin eruption; Z79.899 Other long term (current) drug therapy; Z88.1 Allergy status to other antibiotic agents; Z88.2 Allergy status to sulfonamides; Z88.5 Allergy status to narcotic agent; Z88.8 Allergy status to other drugs, medicaments and biological substances; Z98.890 Other specified postprocedural states

== ENCOUNTER 2025-03-25 23:56 | Emergency (ER) | payer OTHER ==
[~2025-03-25] VITALS: Ht 175.2 cm; Wt 117.9 kg
[2025-03-26] MEDS ORDERED: methylPREDNISolone sod succ 125 MG VIAL IM ONE (01:45)
== END 2025-03-26 02:00 | disposition home or self-care (01) ==
LOC: ED 23:56
DX: J40 Bronchitis, not specified as acute or chronic (principal); Z20.822 Contact with and (suspected) exposure to COVID-19; Z79.899 Other long term (current) drug therapy; Z88.1 Allergy status to other antibiotic agents; Z88.2 Allergy status to sulfonamides; Z88.5 Allergy status to narcotic agent; Z98.890 Other specified postprocedural states

== ENCOUNTER 2025-09-25 18:47 | Emergency (ER) | payer OTHER ==
[~2025-09-25] VITALS: Ht 177.8 cm; Wt 117.9 kg
[2025-09-25] MEDS ORDERED: VIBRAMYCIN100 MG PO (21:13)
== END 2025-09-25 21:27 | disposition home or self-care (01) ==
LOC: ED 18:47
DX: J01.90 Acute sinusitis, unspecified (principal); R59.0 Localized enlarged lymph nodes; Z88.1 Allergy status to other antibiotic agents; Z88.6 Allergy status to analgesic agent; Z88.2 Allergy status to sulfonamides; Z79.899 Other long term (current) drug therapy; Z98.890 Other specified postprocedural states; Z20.822 Contact with and (suspected) exposure to COVID-19